=== PATIENT | male | born 1985 | race African-American/Black ===

== ENCOUNTER → 2017-11-03 | Outpatient (REF) | payer OTHER ==
[2017-11-03 13:39] LABS: REASON FOR REVIEW WBC/LEUKEMIA/BLAST; SLIDE REVIEW Report; SOURCE PERIPHERAL SMEAR
== END ==
LOC: M LAB REF 13:13
DX: D69.1 Qualitative platelet defects (principal); D72.819 Decreased white blood cell count, unspecified

== ENCOUNTER → 2018-06-16 | Outpatient (REF) | payer OTHER ==
[2018-06-16 13:23] LABS: BASO % 0.8 % (0.0-1.0); COLLAGEN EPINEPHRINE 123 SECONDS (74-162); EOS # 0.2 10^3/uL (0.0-0.50); EOS % 6.5 % (0.0-3.0); HEMATOCRIT 44.3 % (42.0-52.0); HEMOGLOBIN 14.6 g/dl (13.5-17.5); LYMPH # 1.7 10^3/uL (1.5-4.5); LYMPH % 47.5 % (24.0-44.0); MEAN CORPUSCULAR HEMOGLOBIN 29.4 pg (27.0-33.0); MEAN CORPUSCULAR VOLUME 89.3 fl (80.0-96.0); MONO # 0.3 10^3/uL (0.0-0.8); MONO % 8.4 % (0.0-5.0); NEUTROPHILS # 1.3 10^3/uL (1.8-7.7); NEUTROPHILS % 36.5 % (36.0-66.0); PLATELET COUNT, AUTOMATED 147 10^3/uL (150-450); RED BLOOD COUNT 4.96 10^6/uL (4.30-6.10); WHITE BLOOD COUNT 3.6 10^3/uL (4.0-10.0)
[2018-06-16 13:28] LABS: ALBUMIN 4.1 GM/DL (3.2-5.2); ALT/SGPT 31 U/L (12-78); BILIRUBIN,TOTAL 0.5 MG/DL (0.2-1.0); BLOOD UREA NITROGEN 13 MG/DL (7-18); CALCIUM LEVEL 8.6 MG/DL (8.5-10.1); CARBON DIOXIDE LEVEL 31 MEQ/L (21-32); CHLORIDE LEVEL 102 MEQ/L (98-107); CREATININE FOR GFR 1.02 MG/DL (0.70-1.30); GLOMERULAR FILTRATION RATE > 60.0 (>60); GLUCOSE, FASTING 79 MG/DL (70-100); POTASSIUM SERUM 4.2 MEQ/L (3.5-5.1); SODIUM LEVEL 138 MEQ/L (136-145); TOTAL PROTEIN 7.7 GM/DL (6.4-8.2)
[2018-06-16 13:34] LABS: FOLLICLE STIMULATING HORMONE 2.9 mIU/mL (1.4-18.1); LUTEINIZING HORMONE 5.5 mIU/mL (1.5-9.3)
[2018-06-18 00:06] LABS: TESTOSTERONE FREE (DIRECT) 10.1 pg/mL (8.7-25.1)
== END ==
LOC: M LABSMT 12:53
PROVIDERS: ATTEND Urology Pediatric Urology
DX: N52.9 Male erectile dysfunction, unspecified (principal)